=== PATIENT | male | born 1990 | race American Indian/Alaskan Native ===

== ENCOUNTER 2017-09-29 22:24 | Emergency (ER) | payer SELFPAY ==
[2017-09-29 22:36] VITALS: BP 133/86
== END 2017-09-29 23:40 | disposition left against medical advice (07) ==
LOC: ED 22:24
DX: R22.0 Localized swelling, mass and lump, head (principal); Z53.21 Procedure and treatment not carried out due to patient leaving prior to being seen by health care provider

== ENCOUNTER 2017-09-30 13:41 | Emergency (ER) | payer OTHER ==
[2017-09-30 13:48] VITALS: BP 102/70
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
== END 2017-09-30 16:45 | disposition home or self-care (01) ==
LOC: ED 13:41
DX: K04.7 Periapical abscess without sinus (principal); F17.200 Nicotine dependence, unspecified, uncomplicated; G43.909 Migraine, unspecified, not intractable, without status migrainosus
CPT/HCPCS: 99282

== ENCOUNTER 2019-02-05 07:24 | Emergency (ER) | payer SELFPAY ==
[2019-02-05 07:30] VITALS: BP 109/78
--- NOTE | 2019-02-05 08:08 | XRay Report ---
ROUTINE CHEST, TWO VIEWS: HISTORY: chest pain. The trachea, heart, mediastinal contour, lung forbes and bony thorax are unremarkable. IMPRESSION: Unremarkable chest x-ray.
[2019-02-05] MEDS ORDERED: DELTASONE PO ONE (08:16)
[2019-02-05] MEDS ORDERED: PROVENTIL IH ONE (08:16)
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
[2019-02-05 08:41] LABS: Hematocrit 38.2 % (35.5-45.6); Hemoglobin 12.5 gm/dl (11.8-15.2); Mean Corpuscular HGB Conc 33 % (32-34); Mean Corpuscular Volume 93 fl (84-94); Platelet Count 125 K/mm3 (140-440); Red Blood Count 4.13 M/mm3 (3.65-5.03); Red Cell Distribution Width 13.1 % (13.2-15.2)
[2019-02-05 09:03] LABS: Alanine Aminotransferase 10 units/L (7-56); Albumin 3.8 g/dL (3.9-5); BUN/Creatinine Ratio 7; Blood Urea Nitrogen 6 mg/dL (9-20); Calcium 8.4 mg/dL (8.4-10.2); Hemolysis Index 17
== END 2019-02-05 09:35 | disposition home or self-care (01) ==
LOC: ED 07:24
DX: J06.9 Acute upper respiratory infection, unspecified (principal); D69.6 Thrombocytopenia, unspecified; F17.200 Nicotine dependence, unspecified, uncomplicated; G43.909 Migraine, unspecified, not intractable, without status migrainosus
CPT/HCPCS: 36415; 71046; 80053; 85027; 93005; 93010; 94640; 99284; J7512

== ENCOUNTER 2020-12-27 01:50 | Emergency (ER) | payer SELFPAY ==
[2020-12-27 02:58] VITALS: BP 135/96
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
== END 2020-12-27 07:01 | disposition home or self-care (01) ==
LOC: ED 01:50
DX: M25.571 Pain in right ankle and joints of right foot (principal); F17.200 Nicotine dependence, unspecified, uncomplicated; G43.909 Migraine, unspecified, not intractable, without status migrainosus; Z98.890 Other specified postprocedural states; Z79.899 Other long term (current) drug therapy
CPT/HCPCS: 99282

== ENCOUNTER 2021-05-26 07:21 | Emergency (ER) | payer OTHER ==
[2021-05-26 07:34] VITALS: BP 117/86
[2021-05-26 08:40] LABS: Bilirubin,Urine NEG (Negative); Blood,Urine NEG (Negative); Color,Urine Yellow (Yellow); Mucus,Urine 1+ /HPF; Protein,Urine <15 mg/dL mg/dL (Negative); Urobilinogen,Urine < 2.0 mg/dL (<2.0)
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
== END 2021-05-26 11:58 | disposition home or self-care (01) ==
LOC: ED 07:21
DX: J06.9 Acute upper respiratory infection, unspecified (principal); G43.909 Migraine, unspecified, not intractable, without status migrainosus; F17.200 Nicotine dependence, unspecified, uncomplicated; F12.90 Cannabis use, unspecified, uncomplicated; Z79.899 Other long term (current) drug therapy
CPT/HCPCS: 81001; 99283